=== PATIENT | male | born 1995 | race Caucasian/White ===

== ENCOUNTER 2020-05-13 08:56 | Emergency (ER) | payer OTHER ==
[2020-05-13 09:06] VITALS: BP 125/75; PULSE 96; TEMP 98.6; BMI 29.2
[2020-05-13] MEDS ORDERED: KETOROLAC TROMETHAMINE 30 MG/1 ML VIAL IM ONE (09:24)
[2020-05-13] MEDS ORDERED: KETOROLAC TROMETHAMINE 30 MG/1 ML VIAL ONE (09:27)
--- NOTE | 2020-05-13 09:35 | PDOC ---
History of Present Illness - General Chief Complaint: Abscess Boil Stated Complaint: ABSCESS BOIL Time Seen by Provider: 05/13/20 09:09 History Source: Patient Exam Limitations: No Limitations - History of Present Illness Initial Comments: 05/13/20 09:28 24-year-old male reports right inner thigh abscess several years ago otherwise healthy presents complaining of pain and swelling to tailbone x 3 days. Patient denies fever, chills, trauma to the area, urinary symptoms or any other complaints. Tetanus vaccine is up-to-date. Patient has not taken any medication for pain today. ROS: as above PE: GENERAL: well-appearing, NAD HEAD: NCAT EYES: Pupils equal, round and reactive to light, sclera anicteric, conjunctiva clear ENT: pharynx: no erythema, no exudate, uvula midline NECK: supple CHEST: nontender RESP: clear, no w/r/r CARDIO: rrr, no m/g/r ABD: +BS, soft, nontender, non distended BACK: no midline spinal ttp, no CVAT EXTREMITIES: Normal range of motion, no edema NEUROLOGICAL: Normal speech, normal gait SKIN: Approximately 2 cm x 2 cm indurated, erythematous area to right upper tailbone area, no streaking, no drainage noted, warmth and tenderness to palpation Is this a multiple visit Asthma Patient?: No Past History - Medical History Allergies/Adverse Reactions: Allergies Allergy/AdvReac Type Severity Reaction Status Date / Time No Known Allergies Allergy Verified 05/13/20 08:58 Home Medications: Ambulatory Orders Cephalexin [Keflex] 500 mg PO TID 7 Days #21 capsule 05/13/20 Naproxen [Naprosyn] 500 mg PO BID 10 Days #20 tablet 05/13/20 COPD: No - Immunization History Immunization Up to Date: Yes - Psycho-Social/Smoking History Smoking History: Current every day smoker Have you smoked in the past 12 months: No Information on smoking cessation initiated: No - Substance Abuse Hx (Audit-C & DAST Scrn) How often the patient has a drink containing alcohol: Never Score: In Men: 4 or > Positive; In Women: 3 or > Positive: 0 Screen Result (Pos requires Nsg. Audit-10AR): Negative In the last yr the pt used illegal drug/Rx for NonMed reason: No Score: Yes response is considered Positive: 0 Screen Result (Positive result requires Nsg. DAST-10): Negative *Physical Exam - Vital Signs Last Vital Signs Temp Pulse Resp BP Pulse Ox 98.6 F 96 H 20 125/75 100 05/13/20 08:59 05/13/20 08:59 05/13/20 08:59 05/13/20 08:59 05/13/20 08:59 Medical Decision Making - Medical Decision Making 05/13/20 09:35 24-year-old male reports right inner thigh abscess several years ago otherwise healthy presents complaining of pain and swelling to tailbone x 3 days. Patient denies fever, chills, trauma to the area, urinary symptoms or any other complaints. Tetanus vaccine is up-to-date. Patient has not taken any medication for pain today. Exam consistent with an infected pilonidal cyst No drainage indicated given its induration at this time Advised patient to apply warm compresses Toradol 30 mg IM given for pain prescription for cephalexin sent to pharmacy Follow-up with PMD this week Discharge - Discharge Information Problems reviewed: Yes Clinical Impression/Diagnosis: Infected pilonidal cyst Condition: Stable Disposition: HOME - Admission No - Additional Discharge Information Prescriptions: Cephalexin [Keflex] 500 mg PO TID 7 Days #21 capsule Naproxen [Naprosyn] 500 mg PO BID 10 Days #20 tablet - Follow up/Referral Referrals: Makayla Yao MD [Primary Care Provider] - [facility] [place] [facility] [Provider Group] - Patient Discharge Instructions Additional Instructions: Take cephalexin 500 mg 1 tablet every 8 hours for 7 days Take Naprosyn 500 mg 1 tablet twice a day as needed for pain Apply warm compresses to area Return to ED if drainage, worsening pain, fever, chills or any concerning symptom - Post Discharge Activity
== END 2020-05-13 09:40 | disposition home or self-care (01) ==
LOC: JER 08:56 → JERFT 08:56
PROC: 3E0233Z Introduction of Anti-inflammatory into Muscle, Percutaneous Approach (ICD-10-PCS; principal; 2020-05-13)
DX: L05.01 Pilonidal cyst with abscess (principal)
CPT/HCPCS: 96372; 99284-25